=== PATIENT | female | born 1935 | race Caucasian/White ===

== ENCOUNTER 2017-09-26 16:03 | Observation (INO) ==
--- NOTE | 2017-09-26 16:22 | Emergency Department Note ---
ED Disposition Clinical Impression: Dehydration Disposition: Still a Patient Condition on Discharge: Fair Referrals: Dilan Mccabe [Primary Care Provider] - - Critical Care Critical Care Time: No Attestation: On , the high probability of a clinically significant, sudden or life threatening deterioration of the following system(s) required my full and direct attention, intervention and personal management. The time I documented below is in addition to time spent performing reported procedures but includes the following listed in this critical care notation. Medical Decision Making - Rivera Inquiry Pt receiving controlled substance: No Vital Signs: 09/26/17 16:04 09/26/17 16:14 09/26/17 16:34 Temperature 99.3 F Temperature Source Oral Pulse Rate [Right Radial] 71 110 H Respiratory Rate 20 16 Blood Pressure [Right Arm] 120/57 124/96 Blood Pressure Mean [Right Arm] 78 105 Blood Pressure Source [Right Arm] Automatic Cuff Automatic Cuff Blood Pressure Position [Right Arm] Supine Sitting 02 Sat by Pulse Oximetry 86 L 95 100 Oxygen Delivery Method Room Air Nasal Cannula Nasal Cannula Oxygen Flow Rate (LPM) 2 2 09/26/17 17:04 Temperature Temperature Source Pulse Rate [Right Radial] 90 Respiratory Rate 20 Blood Pressure [Right Arm] 151/60 Blood Pressure Mean [Right Arm] 90 Blood Pressure Source [Right Arm] Automatic Cuff Blood Pressure Position [Right Arm] Sitting 02 Sat by Pulse Oximetry 100 Oxygen Delivery Method Nasal Cannula Oxygen Flow Rate (LPM) 2 - Lab Data Lab Results 09/26/17 16:25: WBC 12.8 H, RBC 4.08 L, Hgb 10.3 L, Hct 33.5 L, MCV 82.2, MCH 25.3 L, MCHC 30.8 L, RDW 14.4, Plt Count 657 H, MPV 7.0 L, Neut % (Auto) 78.4, Lymph % (Auto) 15.7, [place] % (Auto) 5.3, Eos % (Auto) 0.4, Baso % (Auto) 0.2, Neut # (Auto) 10.0 H, Lymph # (Auto) 2.0, [place] # (Auto) 0.7, Eos # (Auto) 0.1, Baso # (Auto) 0.0 09/26/17 16:25: Sodium 133 L, Potassium 4.4, Chloride 99, Carbon Dioxide 23, Anion Gap 15.4 H, BUN 31 H, Creatinine 2.09 H, Estimated Creat Clear 24, Estimated GFR 23 L, Est GFR ( Amer) 27 L, Glucose 108 H, Calcium 8.4 L, Total Bilirubin 0.6, AST 9 L, ALT 13, Alkaline Phosphatase 90, Troponin I < 0.02 , Total Protein 7.9, Albumin 1.9 L, Globulin 6.0 H, Albumin/Globulin Ratio 0.3 L 09/26/17 16:25: Lactic Acid 1.2 Result diagrams: 09/26/17 16:25 09/26/17 16:25 Orders (Tests/Meds): ED MEDICATIONS Generic Name Dose Route Start Last Admin Trade Name Freq PRN Reason Stop Dose Admin Sodium Chloride 1,000 mls @ 999 mls/hr 09/26/17 16:30 09/26/17 16:39 Sod Chlor 0.9% 1000ml Bag IV 09/26/17 17:30 999 mls/hr .Q1H1M GORDO Administration ORDERS Category Date Time Status XR chest portable Stat Exams 09/26/17 16:21 Taken Urinalysis and Microscopic Stat Lab 09/26/17 16:11 Ordered Blood Culture Stat Micro 09/26/17 16:25 Received - ECG Data Tracing #1 EKG interpreted by Phillip Yen MD: Rhythm: Undetermined rhythm, irregular, significant baseline wander and artifact due to Parkinson's tremor Rate: 60s [place]: normal - Physician Consults Physician Consulted: Yesenia Parada Time: 17:29 Reason -: Admission Comment/Response: Agrees to admit the patient to the hospital. We discussed the patient's clinical information, including history, exam, laboratory and radiology results and ED course. Per hospital procedure, I will write temporary bridge inpatient orders on the patient. Specific orders requested by the admitting physician: Continue hydration General Adult HPI - General Chief complaint: Weakness Stated complaint: weakness, loss of appetite Time Seen by Provider: 09/26/17 16:20 Mode of Arrival: EMS Limitations: No Limitations Description of Symptoms (Recalled from ER Triage Doc. by RN): weakness and loss of appetite for one week. recent history of loose stools to which daughter states dr said was negative. increased tiredness. - History of Present Illness HPI narrative: Brought in by ambulance. History obtained primarily from daughter. For 1 week the patient has lost her appetite, is not eating or drinking. Has not gotten out of bed in 1 week. Normally she would be able to get up with a walker or in a wheelchair and use the bathroom on her own. Decreased urine output. She had been having diarrhea since March, which is now improved, daughter believes because of lack of oral intake. No fever noted. No upper respiratory infection symptoms noted. Not complaining of any pain. She is on chronic pain medication. Daughter is concerned she is getting dehydrated. She developed severe diarrhea in March after being hospitalized for pneumonia. She was again hospitalized in April because of the diarrhea. Daughter describes copious foul-smelling diarrhea. Extensive laboratory testing was done, but no infections could be found. She was discharged to a longterm for rehabilitation and came home on July 21. Primary care doctors Dr. Mccabe. - Related Data Home Medications Medication Instructions Recorded Confirmed Aspirin [Aspir 81] 81 mg PO DAILY 05/08/17 05/08/17 Benzonatate [Benzonatate 100mg 100 mg PO Q6HP PRN 05/08/17 05/08/17 cap] Citalopram Hydrobromide [Celexa] 40 mg PO DAILY 05/08/17 05/08/17 Cyanocobalamin/Folic Acid [Vitamin 1 each PO DAILY 05/08/17 05/08/17 Y30-Ssyot Acid Tablet] Esomeprazole Magnesium [Nexium 20 mg PO DAILY 05/08/17 05/08/17 24Hr] Hydrocod/Acet 5/325 mg [[place] 1 each PO Q6HP PRN 05/08/17 05/10/17 5/325mg tablet] L.acidoph,Paracasei, B.lactis 1 each PO DAILY 05/08/17 05/08/17 [Probiotic] Loratadine [Claritin] 10 mg PO DAILY 05/08/17 05/08/17 Metoclopramide HCl [Reglan 5mg 5 mg PO BID 05/08/17 05/08/17 Tablet] Metoprolol Tartrate 25 mg PO BID 05/08/17 05/10/17 Amlodipine Besylate [Norvasc 5mg 10 mg PO PM 05/10/17 05/10/17 tablet] Previous Rx's Medication Instructions Recorded Potassium Chloride [Klor-con 20 40 meq PO BID #60 tab 05/11/17 mEq tablet] cefUROXime axetil [Ceftin 250mg 250 mg PO BID #14 tablet 05/11/17 Tablet] Allergies Allergy/AdvReac Type Severity Reaction Status Date / Time adhesive tape [ADHESIVE TAPE] Allergy Unknown I-RASH Verified 05/08/17 07:19 Penicillins [PENICILLINS] Allergy Unknown RASH/HIVES Verified 05/08/17 07:19 Sulfa (Sulfonamide Allergy Unknown RASH/HIVES Verified 05/08/17 07:19 Antibiotics) [SULFA (SULFONAMIDE ANTIBIOTICS)] oxybutynin Allergy Verified 05/08/17 07:21 [facility] History I have reviewed the patient's past medical history: Yes Medical History: Reports:: Atherosclerotic Heart Disease, Coronary Artery Disease, Diabetes Mellitus Type 2, Hyperlipidemia, Hypertension Denies:: Cancer, Diabetes Mellitus Type 1, MRSA Other Medical History: Reports: Arthritis, Cataracts Laterality Cases: Left: Arthroscopy Knee Other Surgeries: Yes: Angioplasty, Cardiac Catheterization, Colonoscopy, EGD, Hysterectomy-Total Amputation: No Fractures: Yes (elbow, clavicle, wrist) - Social History Alcohol Intake: never Occupational Status: retired Housing: house Household Members: family - Psychiatric History Expresses thoughts of harming self/others: None Suicide Plan Description: No Plan Family Hx:: Cancer, Coronary Artery Disease, Diabetes, Heart Attack, Hypertension ROS Obtained: Yes All systems reviewed & no additional complaints - Constitutional Constitutional: Reports fatigue, Denies fever(s), Reports poor appetite, Reports lethargy, Reports malaise, Reports weakness - Cardiovascular Cardiovascular: Denies chest pain - Respiratory Respiratory: No cough, No dyspnea - Gastrointestinal Gastrointestingal: Reports: diarrhea. Denies: abdominal pain, vomiting - Neurologic Neurologic: Denies headache(s), Reports other (Parkinson's disease, chronic tremor) Physical Exam - General General appearance: alert, in no apparent distress - Head Head exam: atraumatic, normocephalic, normal inspection - Eye Eye exam: Present: normal appearance, PERRL, EOMI - ENT ENT exam: Present: normal exam, normal oropharynx, mucous membranes moist, TM's normal bilaterally, normal external ear exam - Neck Neck exam: Present: normal inspection, full ROM, trachea midline. Absent: meningismus, lymphadenopathy - Chest Chest inspection: Present: normal inspection, symmetric chest wall rise. Absent : tenderness - Respiratory Respiratory exam: Present: normal lung sounds bilaterally. Absent: respiratory distress - Cardiovascular Cardiovascular exam: Present: regular rate, normal rhythm. Absent: JVD - Abdominal Exam Abdominal exam: Present: soft, normal bowel sounds. Absent: distention, tenderness, guarding - Extremities Exam Extremities exam: Present: normal inspection, full ROM, normal capillary refill. Absent: calf tenderness - Neurological Exam Neurological exam: Present: alert, oriented X3, other (Decreased hearing. Parkinson tremor.) - Psychiatric Psychiatric exam: Present: normal affect, normal mood - Skin Skin exam: Present: warm, dry, intact, normal color
[2017-09-26 16:37] LABS: Basophils % 0.2 % (0.1-2.0); Eosinophils # 0.1 K/mm3 (0.0-0.4); Eosinophils % 0.4 % (0.1-12.0); Hematocrit 33.5 % (37.0-47.0); Hemoglobin 10.3 g/dL (12.2-16.2); Lymphocytes % 15.7 K/mm3 (10-50); Mean Corpuscular HGB Conc 30.8 g/dL (31.8-35.4); Mean Corpuscular Hemoglobin 25.3 pg (27.0-31.2); Mean Corpuscular Volume 82.2 fl (81-99); Monocytes # 0.7 K/mm3 (0.1-1.0); Monocytes % 5.3 % (1.7-9.3); Neutrophils % 78.4 % (37.0-80.0); Platelet Count 657 K/mm3 (142-424); Red Blood Count 4.08 M/mm3 (4.20-5.40); Red Cell Distribution Width 14.4 % (11.5-17.5); White Blood Count 12.8 K/mm3 (4.8-10.8)
[2017-09-26 16:51] LABS: Alanine Aminotransferase 13 U/L (12-78); Albumin Level 1.9 gm/dL (3.4-5.0); Albumin/Globulin Ratio 0.3 (1.1-1.8); Alkaline Phosphatase 90 U/L (46-116); Anion Gap 15.4 mEq/L (5-15); Aspartate Amino Transferase 9 U/L (15-37); Bilirubin,Total 0.6 mg/dL (0.2-1.0); Blood Urea Nitrogen 31 mg/dL (7-18); Calcium 8.4 mg/dL (8.5-10.1); Carbon Dioxide 23 mmol/L (21.0-32.0); Chloride 99 mmol/L (98-107); Glucose 108 mg/dL (74-106); Potassium 4.4 mmoL/L (3.5-5.1); Sodium 133 mmol/L (136-145); Total Protein,Serum 7.9 gm/dL (6.4-8.2)
[2017-09-26 17:32] LABS: Appearance,Urine CLEAR (Clear); Bilirubin,Urine Negative (Negative); Blood, Urine 3+ (Negative); Color,Urine YELLOW (Yellow); Glucose,Urine (UA) Negative (Negative); Ketones,Urine Negative (Negative); Leukocyte Esterase,Urine Negative (Negative); Microscopic, Urine URINE MICROSCOPIC (MICROSCOPIC); PH,Urine 5.5 (5.0-8.5); Protein,Urine 1+ (Negative); Urobilinogen,Urine 0.2 EU/dl (0.2)
[2017-09-26 18:31] LABS: Bacteria,Urine 1+ /lpf
[2017-09-27 07:42] LABS: Anion Gap 13.5 mEq/L (5-15); Calcium 7.7 mg/dL (8.5-10.1); Potassium 3.5 mmoL/L (3.5-5.1)
[2017-09-27 07:45] LABS: Basophils % 0.1 % (0.1-2.0); Eosinophils # 0.1 K/mm3 (0.0-0.4); Eosinophils % 0.4 % (0.1-12.0); Hematocrit 29.8 % (37.0-47.0); Lymphocytes # 1.1 K/mm3 (0.7-4.5); Mean Corpuscular HGB Conc 30.3 g/dL (31.8-35.4); Mean Corpuscular Hemoglobin 25.2 pg (27.0-31.2); Mean Corpuscular Volume 83.2 fl (81-99); Mean Platelet Volume 7.2 fl (7.4-10.4); Monocytes # 0.6 K/mm3 (0.1-1.0); Monocytes % 4.6 % (1.7-9.3); Neutrophils # 11.5 K/mm3 (1.8-7.8); Platelet Count 550 K/mm3 (142-424); Red Blood Count 3.58 M/mm3 (4.20-5.40); Red Cell Distribution Width 14.5 % (11.5-17.5); White Blood Count 13.2 K/mm3 (4.8-10.8)
[2017-09-27 07:56] LABS: Hemoglobin 9.1 g/dL (12.2-16.2)
--- NOTE | 2017-09-27 08:53 | History & Physical Report ---
*Admission Date: 09/27/17 *Chief complaint: Diarrhea with dehydration *History of present illness: 82-year-old white female with long history of chronic diarrhea, discharged from [facility] on July 21 of this year, has followed up with her regular hand compositor, Dr. Mccabe a couple of times, and has been treated for UTI 6 weeks ago and then a subsequent yeast infection. Daughter reports that she has chronic diarrhea, consisting of 4-5 liquid stools without blood or mucus on a daily basis, and this has been occurring for the past 6-7 months. She notes that after the UTI was treated the diarrhea worsened and she has been having 10-20 bowel movements, consisting of liquid stool on a daily basis. Over the past 4-5 days she has been progressively more fatigued, weak, and has been mostly bedbound. Brought to the emergency department late yesterday, found to have dehydration with acute kidney injury with creatinine elevation. Admitted to hospital for IV fluids and further diagnostic testing. [facility] History I have reviewed the patient's past medical history: Yes Medical History: Reports:: Atherosclerotic Heart Disease, Coronary Artery Disease, Diabetes Mellitus Type 2, Hyperlipidemia, Hypertension Denies:: Cancer, Diabetes Mellitus Type 1, MRSA Other Medical History: Reports: Arthritis, Cataracts Comment: Chronic tremor. Uncertain if parkinsonism or not. Chronic dementia. Laterality Cases: Left: Arthroscopy Knee Other Surgeries: Yes: Angioplasty, Cardiac Catheterization, Colonoscopy, EGD, Hysterectomy-Total Amputation: No Fractures: Yes (elbow, clavicle, wrist) - *Social History Educational Level: Completed College Smoking Status: Never smoker Alcohol Intake: never Occupational Status: retired Housing: house Household Members: family - Psychiatric History Expresses thoughts of harming self/others: None Suicide Plan Description: No Plan *Family Hx:: Cancer, Coronary Artery Disease, Diabetes, Heart Attack, Hypertension Review of Systems - Review of Systems Review of systems:: unable to obtain Patient is demented. Other than stating "I want to go home" she has no complaints. - *Neurologic Reports weakness, Reports other (Parkinson's disease, chronic tremor), Denies headache(s) Meds Home Medications Medication Instructions Recorded Confirmed Type Aspirin [Aspir 81] 81 mg PO DAILY 05/08/17 09/26/17 History Benzonatate [Benzonatate 100mg 100 mg PO Q6HP PRN 05/08/17 09/26/17 History cap] Cyanocobalamin/Folic Acid [Vitamin 1 each PO DAILY 05/08/17 09/26/17 History C08-[id number] Acid Tablet] Hydrocod/Acet 5/325 mg [[place] 1 each PO Q6HP PRN 05/08/17 09/26/17 History 5/325mg tablet] L.acidoph,Paracasei, B.lactis 1 each PO DAILY 05/08/17 09/26/17 History [Probiotic] Loratadine [Claritin] 10 mg PO DAILY 05/08/17 09/26/17 History Metoclopramide HCl [Reglan 5mg 5 mg PO BID 05/08/17 09/26/17 History Tablet] Metoprolol Tartrate 25 mg PO BID 05/08/17 09/26/17 History Amlodipine Besylate [Norvasc 5mg 10 mg PO PM 05/10/17 09/26/17 History tablet] Citalopram Hydrobromide 20 mg PO DAILY 09/27/17 09/27/17 History [Citalopram HBr] Furosemide [Furosemide 40MG tAB] 40 mg PO BID 09/27/17 09/27/17 History Omeprazole [Omeprazole 20mg 20 mg PO DAILY 09/27/17 09/27/17 History Capsule] Allergies Allergy/AdvReac Type Severity Reaction Status Date / Time adhesive tape [ADHESIVE TAPE] Allergy Unknown I-RASH Verified 05/08/17 07:19 Penicillins [PENICILLINS] Allergy Unknown RASH/HIVES Verified 05/08/17 07:19 Sulfa (Sulfonamide Allergy Unknown RASH/HIVES Verified 05/08/17 07:19 Antibiotics) [SULFA (SULFONAMIDE ANTIBIOTICS)] oxybutynin Allergy Verified 05/08/17 07:21 Exam Vital signs and Labs for Last 24 Hours: Temp Pulse Resp BP Pulse Ox 98.7 F 111 H 22 118/54 94 L 09/27/17 08:00 09/27/17 08:00 09/27/17 08:00 09/27/17 08:00 09/27/17 08:00 Laboratory Results - last 24 hr 09/26/17 16:25: WBC 12.8 H, RBC 4.08 L, Hgb 10.3 L, Hct 33.5 L, MCV 82.2, MCH 25.3 L, MCHC 30.8 L, RDW 14.4, Plt Count 657 H, MPV 7.0 L, Neut % (Auto) 78.4, Lymph % (Auto) 15.7, [place] % (Auto) 5.3, Eos % (Auto) 0.4, Baso % (Auto) 0.2, Neut # (Auto) 10.0 H, Lymph # (Auto) 2.0, [place] # (Auto) 0.7, Eos # (Auto) 0.1, Baso # (Auto) 0.0 09/26/17 16:25: Sodium 133 L, Potassium 4.4, Chloride 99, Carbon Dioxide 23, Anion Gap 15.4 H, BUN 31 H, Creatinine 2.09 H, Estimated Creat Clear 24, Estimated GFR 23 L, Est GFR ( Amer) 27 L, Glucose 108 H, Calcium 8.4 L, Total Bilirubin 0.6, AST 9 L, ALT 13, Alkaline Phosphatase 90, Troponin I < 0.02 , Total Protein 7.9, Albumin 1.9 L, Globulin 6.0 H, Albumin/Globulin Ratio 0.3 L 09/26/17 16:25: Lactic Acid 1.2 09/26/17 17:08: Urine Color Yellow, Urine Appearance Clear, Urine pH 5.5, Ur Specific [place] 1.020, Urine Protein 1+, Urine Glucose (UA) Negative, Urine Ketones Negative, Urine Blood 3+, Urine Nitrate Negative, Urine Bilirubin Negative, Urine Urobilinogen 0.2, Ur Leukocyte Esterase Negative, Urine RBC 10- 20, Urine WBC 3-5, Ur Squamous Epith Cells 3-5, Urine Bacteria 1+ 09/26/17 20:05: Stl Aeromonas (PCR) Not detected, Stl C. cayetanensis PCR Not detected, Stool Rotavirus (PCR) Not detected, Stl Adenov F 40/41 PCR Not detected, Stool Astrovirus (PCR) Not detected, Stool Campylobacter PCR Not detected, Stl C.difficile Tox PCR Not detected, Stool Cryptosporidium PCR Not detected, Stl E.coli Shiga Tox PCR Not detected, Stool E coli O157 PCR Not detected, Stl Enterotoxigenic E PCR Not detected, Stool EPEC (PCR) Not detected , Stool EAEC (PCR) Not detected, Stl E. histolytica PCR Not detected, Stool Giardia Lamblia PCR Not detected, Stool Salmonella PCR Not detected, Stool Sapovirus (PCR) Not detected, Stl P. shigelloides PCR Not detected, Stl Shigella /EIEC PCR Not detected, St Y.enterocolitica PCR Not detected, Stool Vibrio (PCR ) Not detected, Stl Vibrio cholerae PCR Not detected, Stl Norovirus GI/GII PCR Not detected 09/27/17 07:00: WBC 13.2 H, RBC 3.58 L, Hgb 9.1 L D, Hct 29.8 L, MCV 83.2, MCH 25.2 L, MCHC 30.3 L, RDW 14.5, Plt Count 550 H, MPV 7.2 L, Neut % (Auto) 87.0 H , Lymph % (Auto) 8.0 L, [place] % (Auto) 4.6, Eos % (Auto) 0.4, Baso % (Auto) 0.1, Neut # (Auto) 11.5 H, Lymph # (Auto) 1.1, [place] # (Auto) 0.6, Eos # (Auto) 0.1, Baso # (Auto) 0.0 09/27/17 07:00: Sodium 131 L, Potassium 3.5 D, Chloride 100, Carbon Dioxide 21 , Anion Gap 13.5, BUN 25 H, Creatinine 1.76 H, Estimated Creat Clear 29, Estimated GFR 28 L, Est GFR ( Amer) 33 L D, Glucose 99, Calcium 7.7 L I & O for Last 24 hours: Intake & Output 09/24/17 09/25/17 09/26/17 09/27/17 11:59 11:59 11:59 11:59 Intake Total 600 / 600 Output Total 500 / 500 Balance 100 / 100 Weight 169 lb 9 oz Narrative: Patient is pleasant and alert, states "when can I go home?." Heart rate regular. Abdomen soft, lungs are clear in the anterior berry. She has a resting tremor of her upper extremities with repetitive myoclonic jerks. Feet are without tremor. No head tremor. No edema noted. H&P: Result - Labs Labs: Short CBC 09/26/17 09/27/17 Range/Units 16:25 07:00 WBC 12.8 H 13.2 H (4.8-10.8) K/mm3 Hgb 10.3 L 9.1 L D (12.2-16.2) g/dL Hct 33.5 L 29.8 L (37.0-47.0) % Plt Count 657 H 550 H (142-424) K/mm3 BMP 09/26/17 09/27/17 16:25 07:00 Sodium 133 L 131 L Potassium 4.4 3.5 D Chloride 99 100 Carbon Dioxide 23 21 BUN 31 H 25 H Creatinine 2.09 H 1.76 H Glucose 108 H 99 Calcium 8.4 L 7.7 L Cardiac Enzymes 09/26/17 Range/Units 16:25 Troponin I < 0.02 (0.00-0.06) ng/ml Liver Function 09/26/17 Range/Units 16:25 Total Bilirubin 0.6 (0.2-1.0) mg/dL AST 9 L (15-37) U/L ALT 13 (12-78) U/L Alkaline Phosphatase 90 (46-116) U/L Albumin 1.9 L (3.4-5.0) gm/dL Urine 09/26/17 Range/Units 17:08 Urine Color Yellow (Yellow) Urine Appearance Clear (Clear) Urine pH 5.5 (5.0-8.5) Ur Specific [place] 1.020 (1.005-1.030) Urine Protein 1+ (Negative) Urine Glucose (UA) Negative (Negative) Assessment and Plan (1) Chronic diarrhea Current visit: Yes Status: Acute Category: Medical Code(s): K52.9 - Noninfective gastroenteritis and colitis, unspecified This seems to be an exacerbation of her chronic diarrhea. I will stop her metoclopramide and cut down her citalopram dose. I have started rifaximin and probiotic. She might be a candidate for the new IbSD medication Viberzi. (2) Dehydration Current visit: Yes Status: Acute Category: Medical Code(s): E86.0 - Dehydration Acute kidney injury is improving. (3) Hypokalemia Current visit: No Status: Acute Category: Medical Code(s): E87.6 - Hypokalemia Improving. (4) Renal insufficiency Current visit: No Status: Acute Category: Medical Code(s): N28.9 - Disorder of kidney and ureter, unspecified Improving
--- NOTE | 2017-09-27 11:26 | Pharmacy Consult Notes ---
[facility] Pharmacy VTE Monitoring - Patient Demographics Admission date: 09/26/17 Report Date: 09/27/17 Time: 11:26 Allergies/Adverse Reactions: Patient Allergies adhesive tape [ADHESIVE TAPE] Allergy (Unknown, Verified 05/08/17 07:19) I-RASH Penicillins [PENICILLINS] Allergy (Unknown, Verified 05/08/17 07:19) RASH/HIVES Sulfa (Sulfonamide Antibiotics) [SULFA (SULFONAMIDE ANTIBIOTICS)] Allergy ( Unknown, Verified 05/08/17 07:19) RASH/HIVES oxybutynin Allergy (Verified 05/08/17 07:21) Height: 1.75 m Weight: 76.912 kg Patient Problems: Current Active Problems Dehydration (Acute) Chronic diarrhea (Acute) - VTE Risk Labs: VTE Related Lab Results Hgb 9.1 g/dL (12.2-16.2) L D 09/27/17 07:00 Hct 29.8 % (37.0-47.0) L 09/27/17 07:00 Plt Count 550 K/mm3 (142-424) H 09/27/17 07:00 BUN 25 mg/dL (7-18) H 09/27/17 07:00 Creatinine 1.76 mg/dL (0.55-1.02) H 09/27/17 07:00 Estimated Creat Clear 29 mL/min (0-300) 09/27/17 07:00 Was VTE Risk Assessment Performed: Yes VTE Score: 3 VTE Risk Level: Low Risk - Prophylaxis VTE Prophylaxis Ordered?: Yes Types of VTE Prophylaxis: TEDS Knee High Location of Applied Device: Bilateral Lower Extremeties
[2017-09-27 13:07] LABS: Lymphocytes % 10 % (10-50); Monocytes % 3 % (2-9); Neutrophils % 87 % (42-76); Total Cells Counted 100
[2017-09-28 06:49] LABS: Basophils % 0.2 % (0.1-2.0); Eosinophils % 0.4 % (0.1-12.0); Hematocrit 29.8 % (37.0-47.0); Hemoglobin 8.8 g/dL (12.2-16.2); Lymphocytes # 1.3 K/mm3 (0.7-4.5); Lymphocytes % 12.8 K/mm3 (10-50); Mean Corpuscular HGB Conc 29.7 g/dL (31.8-35.4); Mean Corpuscular Volume 84.1 fl (81-99); Mean Platelet Volume 7.2 fl (7.4-10.4); Monocytes # 0.5 K/mm3 (0.1-1.0); Monocytes % 4.7 % (1.7-9.3); Neutrophils % 81.9 % (37.0-80.0); Platelet Count 531 K/mm3 (142-424); Red Blood Count 3.54 M/mm3 (4.20-5.40); Red Cell Distribution Width 14.3 % (11.5-17.5); White Blood Count 9.8 K/mm3 (4.8-10.8)
[2017-09-28 07:12] LABS: Albumin Level 1.5 gm/dL (3.4-5.0); Albumin/Globulin Ratio 0.3 (1.1-1.8); Anion Gap 10.7 mEq/L (5-15); Bilirubin,Total 0.3 mg/dL (0.2-1.0); Calcium 7.7 mg/dL (8.5-10.1); Globulin 5.3 gm/dl (1.3-3.2); Potassium 3.7 mmoL/L (3.5-5.1); Total Protein,Serum 6.8 gm/dL (6.4-8.2)
[2017-09-28 07:39] VITALS: BP 135/67
--- NOTE | 2017-09-28 08:46 | Discharge Summary ---
General - General Admission date:: 09/26/17 Discharge date: 09/28/17 HPI HPI: 82-year-old white female with long history of chronic diarrhea, discharged from [facility] on July 21 of this year, has followed up with her regular building superintendent, Dr. Mccabe a couple of times, and has been treated for UTI 6 weeks ago and then a subsequent yeast infection. Daughter reports that she has chronic diarrhea, consisting of 4-5 liquid stools without blood or mucus on a daily basis, and this has been occurring for the past 6-7 months. She notes that after the UTI was treated the diarrhea worsened and she has been having 10-20 bowel movements, consisting of liquid stool on a daily basis. Over the past 4-5 days she has been progressively more fatigued, weak, and has been mostly bedbound. Brought to the emergency department late yesterday, found to have dehydration with acute kidney injury with creatinine elevation. Admitted to hospital for IV fluids and further diagnostic testing. Hospital Course Hospital Course: Patient was admitted, given IV fluids. Electrolyte abnormalities were corrected. Her creatinine improved fairly nicely Diarrhea continued, PCR testing was negative This is been a chronic concern for the patient. The patient improved nicely from a weakness perspective, PT evaluation was noted. This morning patient was improving, continue to have diarrhea but at her typical home pattern. Given her improved labs and her good PT evaluation it was determined to send her home, medication changes will be made, we will stop her metoclopramide because of tremor and possible worsening of diarrhea, Xifaxan will be tried for her irritable bowel pattern with possible bacterial overgrowth. She will see her primary building superintendent next week with electrolytes at that point. Objective Vital signs: Temp Pulse Resp BP Pulse Ox 98.3 F 72 18 135/67 97 09/28/17 07:37 09/28/17 07:37 09/28/17 07:37 09/28/17 07:37 09/28/17 07:37 Narrative: Tremor of the jaw and hands consistent with tardive dyskinesia and repetitive myoclonus noted. No seat cover maker admission. Anterior lung berry are clear, heart rate regular. Abdomen is soft and nontender. No edema noted. Results Labs on day of discharge: Labs from last 24 hours 09/28/17 09/28/17 09/27/17 06:10 06:10 07:00 WBC 9.8 D RBC 3.54 L Hgb 8.8 L Hct 29.8 L MCV 84.1 MCH 25.0 L MCHC 29.7 L RDW 14.3 Plt Count 531 H MPV 7.2 L Neut % (Auto) 81.9 H Lymph % (Auto) 12.8 [place] % (Auto) 4.7 Eos % (Auto) 0.4 Baso % (Auto) 0.2 Neut # (Auto) 8.0 H Lymph # (Auto) 1.3 [place] # (Auto) 0.5 Eos # (Auto) 0.0 Baso # (Auto) 0.0 Total Counted 100 Neutrophils % (Manual) 87 H Lymphocytes % (Manual) 10 Monocytes % (Manual) 3 Platelet Estimate Marked increase RBC Morphology Not Reportable Sodium 133 L Potassium 3.7 Chloride 104 Carbon Dioxide 22 Anion Gap 10.7 BUN 16 D Creatinine 1.46 H Estimated Creat Clear 35 Estimated GFR 34 L Est GFR ( Amer) 41 L D Glucose 98 Calcium 7.7 L Total Bilirubin 0.3 AST 11 L ALT 16 Alkaline Phosphatase 82 Total Protein 6.8 Albumin 1.5 L Globulin 5.3 H Albumin/Globulin Ratio 0.3 L Preliminary micro results at discharge 09/26/17 17:08 Urine Culture - Preliminary Urethra NO GROWTH AFTER 24 HOURS DS: Diagnosis - Discharge Diagnosis (1) Chronic diarrhea Status: Chronic (2) Dehydration Status: Resolved (3) Hypokalemia Status: Resolved (4) Renal insufficiency Status: Chronic Discharge Plan - Patient Discharge Instructions ACTIVITY: Continue current activity DIET: continue same diet - Follow up Plan Follow up with: Dilan Mccabe [Primary Care Provider] - 10/02/17 Disposition: Home, Self-Long-Term Medications: Home Medications Medication Instructions Recorded Confirmed Type Aspirin [Aspir 81] 81 mg PO DAILY 05/08/17 09/26/17 History Benzonatate [Benzonatate 100mg 100 mg PO Q8HP PRN 05/08/17 09/27/17 History cap] Hydrocod/Acet 5/325 mg [[place] 1 each PO Q6HP PRN 05/08/17 09/26/17 History 5/325mg tablet] L.acidoph,Paracasei, B.lactis 1 each PO DAILY 05/08/17 09/26/17 History [Probiotic] Loratadine [Claritin] 10 mg PO DAILY 05/08/17 09/26/17 History Metoclopramide HCl [Reglan 5mg 5 mg PO BID 05/08/17 09/26/17 History Tablet] Metoprolol Tartrate 25 mg PO BID 05/08/17 09/26/17 History Amlodipine Besylate [Norvasc 5mg 10 mg PO DAILY 05/10/17 09/27/17 History tablet] Citalopram Hydrobromide 20 mg PO HS 09/27/17 09/27/17 History [Citalopram HBr] Cyanocobalamin (Vitamin B-12) 1,000 mcg PO DAILY 09/27/17 09/27/17 History [Vitamin B-12] Furosemide [Furosemide 40MG tAB] 40 - 80 mg PO DAILYP PRN 09/27/17 09/27/17 History Omeprazole [Omeprazole 20mg 20 mg PO DAILY 09/27/17 09/27/17 History Capsule] Pyridoxine HCl (Vitamin B6) 100 mg PO DAILY 09/27/17 09/27/17 History [Vitamin B-6] Prescriptions/Medication Reconciliation: New Citalopram Hydrobromide [Celexa 20mg Tablet] 20 mg PO HS tablet Rifaximin [Xifaxan] 550 mg PO TID 14 Days #42 tab Continue Metoprolol Tartrate 25 mg PO BID Loratadine [Claritin] 10 mg PO DAILY L.acidoph,Paracasei, B.lactis [Probiotic] 1 each PO DAILY Benzonatate [Benzonatate 100mg cap] 100 mg PO Q8HP PRN PRN Reason: Cough Aspirin [Aspir 81] 81 mg PO DAILY Potassium Chloride [Klor-con 20 mEq tablet] 40 meq PO BID #60 tab Omeprazole [Omeprazole 20mg Capsule] 20 mg PO DAILY Citalopram Hydrobromide [Citalopram HBr] 20 mg PO HS Cyanocobalamin (Vitamin B-12) [Vitamin B-12] 1,000 mcg PO DAILY Pyridoxine HCl (Vitamin B6) [Vitamin B-6] 100 mg PO DAILY Hydrocod/Acet 5/325 mg [[place] 5/325mg tablet] 1 each PO Q6HP PRN PRN Reason: PAIN Amlodipine Besylate [Norvasc 5mg tablet] 10 mg PO DAILY Discontinued Metoclopramide HCl [Reglan 5mg Tablet] 5 mg PO BID Furosemide [Furosemide 40MG tAB] 40 - 80 mg PO DAILYP PRN PRN Reason: Edema
== END 2017-09-28 10:50 | disposition home or self-care (01) ==
LOC: 2ND 16:03 → ER 16:03 → 2ND 18:05
PROVIDERS: ADMIT Emergency Medicine; ATTEND Internal Medicine Adolescent Medicine